=== PATIENT | male | born 1955 | race Caucasian/White ===

== ENCOUNTER 2025-06-30 10:30 | Emergency (ER) | payer MEDICAID ==
[~2025-06-30] VITALS: Ht 165.1 cm; Wt 77.0 kg
[2025-06-30] MEDS: PROPOFOL 200MG/20ML VIAL IV ONE (12:45)
[2025-06-30] MEDS: ONDANSETRON HCL 4MG/2ML INJ IV ONE (14:34)
[2025-06-30] MEDS: MORPHINE SULFATE 4 MG/ML INJ (FOR IV/IM USE) IV ONE (14:34)
[2025-06-30] MEDS: MORPHINE SULFATE 4 MG/ML INJ (FOR IV/IM USE) IV SCH (14:45)
[2025-06-30] MEDS: ONDANSETRON HCL 4MG/2ML INJ IV SCH (14:45)
[2025-06-30 14:49] VITALS: O2SAT 100
[2025-06-30 15:00] VITALS: TEMP 37
[2025-06-30] MEDS: PROPOFOL 200MG/20ML VIAL IV SCH (15:12)
[2025-06-30] MEDS ORDERED: HYDR-4009 MT (16:21)
[2025-06-30] MEDS ORDERED: IBUP-2030 MT (16:21)
[2025-06-30 17:26] VITALS: BP 129/87; PULSE 83; RESP 18; O2SAT 99
== END 2025-06-30 17:45 | disposition home or self-care (01) ==
LOC: ER 10:30
DX: S82.61XA Displaced fracture of lateral malleolus of right fibula, initial encounter for closed fracture (principal); E11.9 Type 2 diabetes mellitus without complications; I10 Essential (primary) hypertension; V18.4XXA Pedal cycle driver injured in noncollision transport accident in traffic accident, initial encounter; Y93.55 Activity, bike riding; Y92.89 Other specified places as the place of occurrence of the external cause; Y99.8 Other external cause status; Z20.822 Contact with and (suspected) exposure to COVID-19
CPT/HCPCS: 73610; 99152; 99285; J2405; J2704; J2270; Z7610 ×4; 96374; A4606